=== PATIENT | male | born 1960 | race Caucasian/White ===

== ENCOUNTER 2020-02-29 11:11 | Emergency (ER) | payer OTHER ==
[2020-02-29] MEDS ORDERED: NORMAL SALINE 1000 ML 1,000 ML IV ONE (12:34)
[2020-02-29 12:56] LABS: ABSOLUTE BASOPHILS # (AUTO) 0.1 10^3/uL (0.0-0.2); ABSOLUTE EOSINOPHILS # (AUTO) 0.3 10^3/uL (0.0-0.6); ABSOLUTE LYMPHOCYTES (AUTO) 0.9 10^3/uL (0.5-4.7); ABSOLUTE MONOCYTES (AUTO) 0.4 10^3/uL (0.1-1.4); ABSOLUTE NEUT (AUTO) 9.9 10^3/uL (1.7-8.2); BASOPHILS % (AUTO) 1.2 % (0-2); EOSINOPHILS % (AUTO) 2.6 % (0-6); HEMATOCRIT 25.5 % (37.9-51.0); HEMOGLOBIN 8.8 g/dL (13.5-17.0); LYMPHOCYTES % (AUTO) 7.9 % (13-45); MEAN CORPUSCULAR HEMOGLOBIN 31.6 pg (27.0-33.4); MEAN CORPUSCULAR HGB CONC 34.5 g/dL (32.0-36.0); MEAN CORPUSCULAR VOLUME 92 fl (80-97); MONOCYTES % (AUTO) 3.2 % (3-13); PLATELET COUNT 323 10^3/uL (150-450); RED BLOOD COUNT 2.79 10^6/uL (4.35-5.55); RED CELL DISTRIBUTION WIDTH 13.1 % (11.5-14.0); SEGMENTED NEUTROPHILS % (AUTO) 85.1 % (42-78); TOTAL CELLS COUNTED % (AUTO) 100 %; WHITE BLOOD COUNT 11.7 10^3/uL (4.0-10.5)
[2020-02-29 13:02] LABS: ALBUMIN 3.1 g/dL (3.5-5.0); ALKALINE PHOSPHATASE 83 U/L (38-126); ANION GAP 9 (5-19); ASPARTATE AMINO TRANSFERASE 34 U/L (17-59); BILIRUBIN,DIRECT 0.4 mg/dL (0.0-0.4); BILIRUBIN,TOTAL 0.5 mg/dL (0.2-1.3); BLOOD UREA NITROGEN 31 mg/dL (7-20); CALCIUM 9.6 mg/dL (8.4-10.2); CARBON DIOXIDE 25 mmol/L (22-30); CHLORIDE 104 mmol/L (98-107); GLUCOSE 116 mg/dL (75-110); POTASSIUM 4.5 mmol/L (3.6-5.0); TOTAL PROTEIN 5.6 g/dL (6.3-8.2)
[2020-02-29 13:03] LABS: ALCOHOL < 10 mg/dL (NONE DETECTED)
[2020-02-29 13:05] LABS: INTERNATIONAL RATION (INR) 1.09; PROTHROMBIN TIME 14.3 SEC (11.4-15.4)
--- NOTE | 2020-02-29 13:25 | ER Document Report ---
ED General - General Chief Complaint: Weakness Stated Complaint: GENERAL WEAKNESS Time Seen by Provider: 02/29/20 11:53 Primary Care Provider: ANISH SAHU MD [Primary Care Provider] - Follow up as needed - [facility] Notes: Chief complaint: Weakness, falls, low blood sugar History of present illness: 59-year-old male status post CABG with triple bypass performed at [facility] on February 14, 2020 seen today transported here by EMS for generalized weakness, recurrent falls and low blood sugar. Patient was apparently living by himself prior to his surgery. He has 2 good friends who have come to the hospital with him today and they indicate they have been trying to care for him at home. They feel that he is not eating and drinking well and that he has exhibited generalized weakness and they have noted that he is fallen at home several times over the past several days. He apparently has not lost consciousness with any of these episodes. EMS reports that over the weekend he had been treated for Low blood sugar after calling EMS and refused to come to hospital at that time. Home health nurse reports today on visit patients BGL was 40. He was given PO glucose and on arrival to home pts BGL was 101. On arrival to ER BGL was 125 - Related Data Allergies/Adverse Reactions: No Known Allergies Allergy (Unverified 02/29/20 11:53) Past Medical History - General Information source: Patient, Friend, Emergency Med Personnel - Social History Smoking Status: Former Smoker Frequency of alcohol use: None Drug Abuse: None Family History: Reviewed & Not Pertinent Patient has homicidal ideation: No - Past Medical History Cardiac Medical History: Reports: Hx Coronary Artery Disease, Hx Hypertension Past Surgical History: Reports: Hx Cardiac Surgery Review of Systems - Review of Systems -: Yes ROS unobtainable due to patient's medical condition Physical Exam - Vital signs Vitals: Resp Pulse Ox 13 94 02/29/20 11:27 02/29/20 11:27 - Notes Notes: GENERAL: Male patient who appears somewhat older than stated age appearing unkempt and mildly confused. SKIN: Pale with diminished turgor. Turgor no rashes. HEAD: Multiple superficial abrasions over facial area which appear to be several days old. EYES: PERRLA. EOMI. Conjunctivae pale. Sclerae clear. EARS: CANALS AND TMS CLEAR. NOSE: CLEAR. MOUTH: Moist mucosa. Good dentition. No stridor or edema. No drooling. NECK: Supple. No masses or thyromegaly. No adenopathy. Carotids 2+ without bruits. No JVD. BACK: Symmetrical without tenderness. CHEST: Respirations unlabored. Breath sounds clear and symmetrical. HEART: Healing midline CABG incision. No redness or drainage. Regular rhythm. No murmur gallop or rub. ABDOMEN: Soft nontender without masses, organomegaly or rebound. Bowel sounds normally active. No bruits. GENITALIA: Deferred. EXTREMITIES: 2+ bilateral pretibial edema. No calf tenderness. Cap refill less than 1.5 seconds. Dorsalis pedis and posterior tibial pulses 3+ and symmetrical. NEUROLOGICAL: Eyes open spontaneously. Disoriented today. Follows commands. GCS 15. Alert and oriented x3. Fluent speech. Cranial nerves II through XII intact. Generalized weakness without focal deficit. Sensation intact. Mild generalized resting tremor. Normal tone. PSYCHIATRIC: Flat affect. Course - Re-evaluation Re-evalutation: 02/29/20 16:24 This gentleman has had general failure to thrive since discharge from the cardiothoracic surgery service at [facility] on 02/22/2020. He has been getting visits from home health nurses and has 2 neighbors who come in and check on him but he does not have any family living with him right now. He is fallen repeatedly. He is mildly disoriented today. He clearly is dehydrated and not eating and drinking well. He has a negative head CT. He has no fever. We have not gotten any urine from him yet. His white count is relatively normal and his hemoglobin is at his discharge baseline around 8.6. He has mild renal insufficiency which appears to be chronic with a creatinine of 1.8. EKG showed no acute changes. His troponin was not significantly elevated. His D-dimer is up and we did a CTA of the chest which showed no pulmonary embolus although there is suggestion of some atelectasis at the left base with a small left pleural effusion and cardiomegaly. His BNP is around 1800. I spoke with the on-call PA for the cardiothoracic surgery service at [facility] who is working with Dr. Buenrostro. They indicated that they would accept patient for transfer back to their facility but the [facility]'s visit will be over 24 hours until I will have a bed available for him. EMTALA form completed. I spoke with the hospitalist service here to see if they would admit the patient to get them out of the emergency department and they refused to admit the patient stating that he was a postoperative case and they would decline evaluation of the patient for admission. I have communicated this to our charge nurse. 02/29/20 16:33 - Vital Signs Vital signs: Temp Pulse Resp BP Pulse Ox 97.7 F 66 13 90/60 L 98 02/29/20 16:16 02/29/20 11:43 02/29/20 16:27 02/29/20 16:27 02/29/20 16:27 - Laboratory Results Result Diagrams: 02/29/20 11:37 02/29/20 11:37 Laboratory Results Interpreted: 02/29/20 02/29/20 02/29/20 11:33 11:37 11:37 WBC 11.7 H RBC 2.79 L Hgb 8.8 L Hct 25.5 L Lymph % (Auto) 7.9 L Absolute Neuts (auto) 9.9 H Seg Neutrophils % 85.1 H D-Dimer BUN 31 H Creatinine 1.81 H Est GFR ( Amer) 47 L Est GFR (MDRD) Non-Af 38 L Glucose 116 H POC Glucose 121 H NT-Pro-B Natriuret Pep Total Protein 5.6 L Albumin 3.1 L 02/29/20 02/29/20 11:37 11:37 WBC RBC Hgb Hct Lymph % (Auto) Absolute Neuts (auto) Seg Neutrophils % D-Dimer 3.83 H BUN Creatinine Est GFR ( Amer) Est GFR (MDRD) Non-Af Glucose POC Glucose NT-Pro-B Natriuret Pep 1740 H Total Protein Albumin Critical Laboratory Results Reviewed: Yes Attending or Supervising Physician who Reviewed Labs: OMER BABIN - Radiology Results Radiology Results Interpreted: 02/29/20 16:21 Chest X-Ray 02/29/20 12:34 IMPRESSION: Cardiomegaly. Prominent basilar interstitial markings with focal airspace disease in the left base. This could represent pneumonia or edema. Head CT 02/29/20 13:22 IMPRESSION: CHRONIC CHANGES OF ATROPHY AND MICROVASCULAR ISCHEMIA. NO ACUTE PROCESS. EVIDENCE OF ACUTE STROKE: NO. Chest/Abdomen CTA 02/29/20 13:23 IMPRESSION: Moderate bilateral pleural effusions and diffuse bilateral interstitial airspace disease most consistent with pulmonary edema. Bibasilar airspace disease most likely superimposed atelectasis. No pulmonary emboli. Critical Radiology Results Reviewed: Yes Attending or Supervising Physician who Reviewed Radiology: OMER BABIN - EKG Interpretation by Me Additional EKG results interpreted by me: 02/29/20 16:22 Twelve-lead EKG reviewed by me contemporaneously: 1142 hrs. Indication for study: Syncope Rhythm: Normal sinus Rate: 66 Intervals: Normal intervals QRS axis: +[address]/T wave changes: Nonspecific T wave changes Comparison with prior tracing: None Interpretation: Nonspecific T wave changes Discharge - Discharge Clinical Impression: Recurrent falls, Facial abrasions, Dehydration CHF (congestive heart failure) Qualifiers: Heart failure type: unspecified Heart failure chronicity: unspecified Qualified Code(s): I50.9 - Heart failure, unspecified Condition: Fair Disposition: [facility] Referrals: ANISH SAHU MD [Primary Care Provider] - Follow up as needed
[2020-02-29 13:28] LABS: TROPONIN I 0.038 ng/mL
--- NOTE | 2020-02-29 13:40 | RADIOLOGY REPORT (SQ) ---
EXAM DESCRIPTION: CHEST SINGLE VIEW IMAGES COMPLETED DATE/TIME: 02/29/2020 1:32 pm REASON FOR STUDY: dyspnea COMPARISON: None. EXAM PARAMETERS: NUMBER OF VIEWS: One view. TECHNIQUE: Single frontal radiographic view of the chest acquired. RADIATION DOSE: NA LIMITATIONS: None. FINDINGS: LUNGS AND PLEURA: Prominent interstitial markings with focal airspace disease in the left base. This may represent pulmonary edema or pneumonia. No pneumothorax. MEDIASTINUM AND HILAR STRUCTURES: No masses. Contour normal. HEART AND VASCULAR STRUCTURES: Cardiomegaly. No central vascular prominence. BONES: No acute findings. HARDWARE: Sternotomy wires are in place. OTHER: No other significant finding. IMPRESSION: Cardiomegaly. Prominent basilar interstitial markings with focal airspace disease in th e left base. This could represent pneumonia or edema. TECHNICAL DOCUMENTATION: JOB ID: [id number] 2010 [employer]- All Rights Reserved Reading location - IP/workstation name: [email or web address]
--- NOTE | 2020-02-29 14:48 | EKG REPORT ---
SEVERITY:- BORDERLINE ECG - SINUS RHYTHM BORDERLINE T WAVE ABNORMALITIES : Confirmed by: Paul Etienne 29-Feb-2020 14:47:41
--- NOTE | 2020-02-29 15:00 | RADIOLOGY REPORT (SQ) ---
EXAM DESCRIPTION: CT HEAD WITHOUT IMAGES COMPLETED DATE/TIME: 02/29/2020 2:48 pm REASON FOR STUDY: syncope COMPARISON: None. TECHNIQUE: Axial images acquired through the brain without intravenous contrast. Images reviewed wi th bone, brain and subdural windows. Additional sagittal and coronal reconstructions were generated. Images stored on PACS. All CT scanners at this facility use dose modulation, iterative reconstruction, and/or weight based d osing when appropriate to reduce radiation dose to as low as reasonably achievable (ALARA). [facility]: Dose Right [facility]: CareDose [facility]: Dose Right [facility]: Teradose 4D [facility]: Smart [employer] RADIATION DOSE: CT Rad equipment meets quality standard of care and radiation dose reduction techniq ues were employed. CTDIvol: 48.8 mGy. DLP: 910 mGy-cm.mGy. LIMITATIONS: None. FINDINGS: VENTRICLES: Prominent. CEREBRUM: No masses. No hemorrhage. No midline shift. Areas of low density in the white matter mos t likely due to chronic micro-vascular ischemic change. No evidence for acute infarction. CEREBELLUM: No masses. No hemorrhage. No alteration of density. No evidence for acute infarction. EXTRAAXIAL SPACES: Age-related involutional change. No fluid collections. No masses. ORBITS AND GLOBE: No intra- or extraconal masses. Normal contour of globe without masses. CALVARIUM: No fracture. PARANASAL SINUSES: No fluid or mucosal thickening. SOFT TISSUES: No mass or hematoma. OTHER: No other significant finding. IMPRESSION: CHRONIC CHANGES OF ATROPHY AND MICROVASCULAR ISCHEMIA. NO ACUTE PROCESS. EVIDENCE OF ACUTE STROKE: NO. TECHNICAL DOCUMENTATION: JOB ID: [id number] Quality ID # [id number]: Final reports with documentation of one or more dose reduction techniques (e.g., Au tomated exposure control, adjustment of the mA and/or kV according to patient size, use of iterative reconstruction technique) 2010 [employer]- All Rights Reserved Reading location - IP/workstation name: [email or web address]
--- NOTE | 2020-02-29 15:04 | RADIOLOGY REPORT (SQ) ---
EXAM DESCRIPTION: CTA CHEST IMAGES COMPLETED DATE/TIME: 02/29/2020 2:54 pm REASON FOR STUDY: Syncope and elevated D-dimer COMPARISON: Chest x-ray done earlier the same day. TECHNIQUE: CT scan of the chest performed using helical scanning technique with dynamic intravenous contrast injection. Images reviewed with lung, soft tissue and bone windows. Reconstructed coronal and sagittal MPR images reviewed. Additional 3 dimensional post-processing performed to develop Maximal Intensity Projection images (PR P). All images stored on PACS. All CT scanners at this facility use dose modulation, iterative reconstruction, and/or weight based d osing when appropriate to reduce radiation dose to as low as reasonably achievable (ALARA). [facility]: Dose Right [facility]: CareDose [facility]: Dose Right [facility]: Teradose 4D [facility]: Stretch CONTRAST TYPE AND DOSE: contrast/concentration: Isovue 300.00 mmol/ml; Total Contrast Delivered: 75. 0 ml; Total Saline Delivered: 64.9 ml Contrast bolus optimized for the pulmonary arteries. Not diagnostic for the aorta. RENAL FUNCTION: BUN 31, creatinine 1.8 RADIATION DOSE: . LIMITATIONS: None. FINDINGS: LUNGS AND PLEURA: Moderate bilateral pleural effusions. Diffuse bilateral interstitial ai rspace disease. Bibasilar consolidation either atelectasis or pneumonia. No pneumothorax. AORTA AND GREAT VESSELS: No aneurysm. Contrast bolus not optimized for the aorta. HEART: No pericardial effusion. Cardiomegaly. PULMONARY ARTERIES: No emboli visualized in the main pulmonary arteries or the segmental branches. HILAR AND MEDIASTINAL STRUCTURES: No identified masses or abnormal nodes. HARDWARE: None in the chest. UPPER ABDOMEN: No significant findings. Limited exam. THYROID AND OTHER SOFT TISSUES: No masses. No adenopathy. BONES: No acute or significant finding. 3D MIPS: Confirm above findings. OTHER: No other significant finding. IMPRESSION: Moderate bilateral pleural effusions and diffuse bilateral interstitial airspace disease most consistent with pulmonary edema. Bibasilar airspace disease most likely superimposed atelectas is. No pulmonary emboli. COMMENT: Quality ID # [id number]: Final reports with documentation of one or more dose reduction techniques (e.g., Automated exposure control, adjustment of the mA and/or kV according to patient size, use of iterative reconstruction technique) TECHNICAL DOCUMENTATION: JOB ID: [id number] [employer]- All Rights Reserved Reading location - IP/workstation name: [email or web address]
[2020-02-29] MEDS ORDERED: DEXTROSE 50%-WATER 25 GM/50 ML DISP.SYRIN IV ONE (16:36)
[2020-02-29] MEDS ORDERED: DEXTROSE 5%-1/2 NORMAL SALINE 1,000 ML IV ONE (16:38)
[2020-02-29 20:49] VITALS: BP 94/64
== END 2020-02-29 20:57 | disposition short-term general hospital (02) ==
LOC: ER 11:11
DX: S00.81XA Abrasion of other part of head, initial encounter (principal); R53.1 Weakness; E86.0 Dehydration; I50.9 Heart failure, unspecified; E16.2 Hypoglycemia, unspecified; R29.6 Repeated falls; W19.XXXA Unspecified fall, initial encounter
CPT/HCPCS: 93005; 99285; 96361; 96374; 36415; 82962; 80307; 83735; 85025; 85610; 0241U ×4; 80053; 84484; 85379; 83880; 71045; 70450; 71275; 93010; J3490; J7030; C9803